=== PATIENT | male | born 1945 | race Caucasian/White ===

== ENCOUNTER → 2017-09-06 09:36 | Outpatient (CLI) | payer MEDICARE, OTHER, SELFPAY ==
[2017-09-06 10:25] LABS: Add Manual Diff / Slide Review NO; Basophils Percent Auto 0.5 % (0-2); Eosinophils Percent Auto 1.5 % (2-4); Hematocrit 39.8 % (41-53); Hemoglobin 14.3 g/dL (13.5-17.5); Lymphocytes Percent Auto 20.4 % (25-40); Mean Corpuscular HGB Conc 35.8 % (30-36); Mean Corpuscular Hemoglobin 32.9 PG (26-34); Mean Corpuscular Volume 91.8 fL (80-100); Monocytes Percent Auto 9.5 % (3-14); Neutrophils Absolute Auto 3100 /uL (3000-5900); Neutrophils Percent Auto 68.1 % (50-75); Platelet Count 152 X10^3/uL (150-400); Red Blood Cell Count 4.34 X10^6/uL (4.5-5.9); Red Cell Distribution Width 12.5 % (11.6-14.8); White Blood Cell Count 4.6 X10^3/uL (4.5-11.0)
[2017-09-06 10:36] LABS: Alanine Aminotransferase 45 IU/L (21-72); Albumin 4.2 g/dL (3.5-5.0); Albumin Globulin Ratio 1.4 (1.0-2.8); Alkaline Phosphatase 94 U/L (38-126); Aspartate Aminotransferase 35 IU/L (17-59); BUN Creatinine Ratio 22.9 (6-22); Bilirubin Total 0.8 mg/dL (0.2-1.3); Blood Urea Nitrogen 16 mg/dL (9-20); Calcium 9.1 mg/dL (8.4-10.2); Carbon Dioxide 26 mmol/L (22-32); Chloride 100 mmol/L (98-107); Estimated Glomerular Filt Rate > 60.0 mL/min (>60); Globulin 2.9 g/dL (1.7-4.1); Glucose 147 mg/dL (80-110); HEMOLYSIS < 15 (0-50); Potassium 4.6 mmol/L (3.4-5.1); Sodium 137 mmol/L (137-145); Total Protein 7.1 g/dL (6.3-8.2)
[2017-09-06 11:06] LABS: Carcinoembryonic Antigen 2.8 ng/mL (0.1-3.0)
== END ==
PROVIDERS: Nurse Practitioner Gerontology; PCP Family Medicine; Visit Provider Radiology Radiation Oncology
DX: C18.9 Malignant neoplasm of colon, unspecified (principal)
CPT/HCPCS: 36415; 80053; 82378; 85025

== ENCOUNTER → 2017-09-24 12:44 | Outpatient (CLI) | payer MEDICARE, OTHER, SELFPAY ==
[2017-09-24 14:36] LABS: Prostate Specific Antigen < 0.064 ng/mL (0.10-4.00)
== END ==
PROVIDERS: PCP Family Medicine; Visit Provider Radiology Radiation Oncology
DX: C61 Malignant neoplasm of prostate (principal)
CPT/HCPCS: 36415; 84153

== ENCOUNTER 2017-10-04 06:50 | Day surgery (SDC) | payer MEDICARE, OTHER, SELFPAY ==
[2017-10-04 07:43] VITALS: BMI 28.8
[2017-10-04 07:52] VITALS: BP 150/84; PULSE 63; RESP 15; TEMP 36.4; O2SAT 100
[2017-10-04] MEDS: SODIUM CHLORIDE 0.9% 1,000 ML 21 ML IV (07:54)
[2017-10-04] MEDS: MIDAZOLAM 5 MG/5 ML VIAL IV (08:53)
[2017-10-04] MEDS: fentaNYL 250 MCG/5 ML INJ IV (08:54)
--- NOTE | 2017-10-04 09:00 | PM.HP.1 ---
History of Present Illness Date Patient Seen: 10/04/17 Time Patient Seen: 08:15 Chief complaint: [id number] Narrative: Samm is a karina 71-year-old man who is well known to me from prior visits. In November of 2015 he underwent a sigmoid colectomy for stage I invasive colon cancer. 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 He has had radiation for both. He is here today for surveillance colonoscopy. He denies any new problems or symptoms related to the function of his GI tract. He still considers himself very healthy and is generally feeling well. Patient History Family & Social History Family History: Reviewed 10/04/17 by Angelica Mills MD Social History: household members spouse Meds Home Medications Medication Instructions Recorded Confirmed Type OMEGA-3 FATTY ACIDS (FISH OIL) 500 mg PO QDAY #0 01/10/16 10/04/17 History [RED YEAST RICE] 1 tab PO DAILY #0 01/10/16 10/04/17 History glucosamine sulfate [Genicin] 1,000 mg PO QDAY #0 01/10/16 10/04/17 History multivitamin [Multiple Vitamins] 2 tab PO QDAY #0 01/10/16 10/04/17 History lisinopril 40 mg PO QDAY #30 tab 09/05/16 10/04/17 Rx Allergies Allergy/AdvReac Type Severity Reaction Status Date / Time No Known Drug Allergies Allergy Verified 10/04/17 07:40 Review of Systems Review of Systems All systems reviewed & are unremarkable except as noted in HPI and below Exam Vital Signs (past 8 hours): - 10/04/17 07:52 Temperature 97.5 F L Pulse Rate 63 Respiratory Rate 15 Blood Pressure 150/84 H Pulse Oximetry 100 Oxygen Delivery Method Room Air Narrative Exam Narrative: Very pleasant well-nourished, well-developed gentleman in no distress. HEENT: Normocephalic and atraumatic, pupils equal round reactive to light accommodation with anicteric sclera Lungs: Clear to auscultation bilaterally Heart: Regular rate and rhythm Abdomen: Soft, nontender to palpation, active bowel sounds, no defects noted at the incision sites. Extremities: Warm and well perfused Assessment & Plan Plan: Assessment/Plan Narrative: We have discussed the risks and benefits of colonoscopy and the patient expressed desire to have the procedure.
[2017-10-04 09:03] VITALS: BP 102/56; PULSE 59; RESP 12; TEMP 36.4; O2SAT 95
--- NOTE | 2017-10-04 09:04 | PM.OP.1 ---
Operative Date/Time/Diagnoses Date of procedure: 10/04/17 Time of procedure: 09:04 Pre-op diagnosis: Personal history of stage I sigmoid colon cancer in November of 2015 Post-op diagnosis: same Procedure & Clinicians Procedure: Colonoscopy to the cecum Same procedure as scheduled: Yes Indications: Stage I colon cancer in November of 2015 Surgeon: Angelica Mills Click Yes if Unassisted: Yes Anesthesia Type: Sedation (Versed 5 mg; fentanyl 150 mcg) Operative Notes Findings: 1. Excellent prep 2. No polyps or mass lesions 3. No AV malformations 4. Anastomosis just superior to the rectal margin in good repair. No polyps or abnormalities present. 5. Grade 1 internal hemorrhoids 6. No evidence of recurrence within the colon Closure Type: not applicable Estimated Blood Loss (mL): 0 Procedure in detail: After obtaining informed consent, the patient was brought to the GI suite and placed in the left lateral decubitus position on the examination table. After placement of appropriate monitors, the patient was given incremental doses of Versed and Fentanyl until an appropriate level of sedation was achieved. A time out was held per SCOAP protocol. A digital rectal examination was performed and did not reveal any masses or obstructing lesions. The colonoscope was gently passed into the patient's anus and the entire colon navigated to the level of the cecum with minimal difficulty. Once in the cecum, the scope was withdrawn being sure to go before and beyond all mucosal folds and prominences and get an excellent examination. The findings are noted above. At the level of the rectal vault, the scope was retroflexed and the internal anal canal was examined. The scope was straightened and air aspirated from the colon. The instrument was removed from the patient's body and the procedure was concluded. The patient was allowed to awaken from sedation without difficulty and taken to the post-anesthesia care unit in good condition. Total sedation time was 19 min Total withdrawal time was 8 min 15 sec Complications: none Condition: stable Disposition: PACU Plan for aftercare: 1. Discharge to home 2. Plan for next colonoscopy in 1 year or as clinically indicated
[2017-10-04 09:08] VITALS: BP 105/68; PULSE 61; RESP 13; O2SAT 98
[2017-10-04 09:13] VITALS: BP 107/71; PULSE 62; RESP 15; TEMP 36.3; O2SAT 97
[2017-10-04 09:18] VITALS: BP 103/65; PULSE 60; RESP 13; TEMP 36.2; O2SAT 97
--- NOTE | 2017-10-04 09:26 | SUR.PHASEII ---
Pt arrived to phase II via stretcher. Pt sitting up and talking to RN. Pt drinking apple juice and tolerating well. Pt denies any nausea or discomfort. Bed in lowest position and call light given to pt. Pt awaiting arrival of at this time.
[2017-10-04 09:40] VITALS: BP 113/71; PULSE 58; RESP 15; TEMP 36.3; O2SAT 100
--- NOTE | 2017-10-04 10:00 | SUR.PHASEII ---
0948: Discharge teaching completed with Pt and ride home. All questions were answered, discharge instructions given and Pt ready to go home. Pt stable on feet and has met discharge criteria.
== END 2017-10-04 09:52 | disposition home or self-care (01) ==
PROVIDERS: PCP Family Medicine; Visit Provider Surgery
PROC: 0DJD8ZZ Inspection of Lower Intestinal Tract, Via Natural or Artificial Opening Endoscopic (ICD-10-PCS; CPT 45378; principal; 2017-10-04 07:45)
DX: Z85.038 Personal history of other malignant neoplasm of large intestine (principal); K64.0 First degree hemorrhoids; Z85.46 Personal history of malignant neoplasm of prostate
CPT/HCPCS: G0105; 99152; J2250; J3010

== ENCOUNTER → 2018-04-02 07:10 | Outpatient (CLI) | payer MEDICARE, OTHER, SELFPAY ==
[2018-04-02 09:39] LABS: Prostate Specific Antigen < 0.064 ng/mL (0.10-4.00)
== END ==
PROVIDERS: Family Provider Urology; PCP Family Medicine; Visit Provider Radiology Radiation Oncology
DX: Z85.46 Personal history of malignant neoplasm of prostate (principal)
CPT/HCPCS: 36415; 84153

== ENCOUNTER → 2018-07-10 07:07 | Outpatient (CLI) | payer MEDICARE, OTHER, SELFPAY ==
--- NOTE | 2018-07-10 | DI.US.S_ITS ---
PROCEDURE: US ABD AORTA ANEURYSM SCREEN INDICATIONS: HISTORY SMOKING TECHNIQUE: Real time scanning was performed of the aorta and iliac arteries, with image documentation. COMPARISON: None. FINDINGS: Aorta: Proximal aortic diameter measures 2.0 cm. Mid-aorta measures 1.6 cm. Distal aortic diameter is 1.5 cm. Iliac arteries: Right common iliac artery measures 1.4 cm. Left common iliac artery measures 1.2 cm. IMPRESSION: No aneurysm found. Dictated by: Stuart Ring M.D. on 07/10/2018 at 13:46 Approved by: Stuart Ring M.D. on 07/10/2018 at 13:47
== END ==
PROVIDERS: Family Provider Urology; PCP Family Medicine; Visit Provider Family Medicine
DX: Z13.6 Encounter for screening for cardiovascular disorders (principal); Z87.891 Personal history of nicotine dependence
CPT/HCPCS: 76706

== ENCOUNTER → 2018-10-04 10:18 | Outpatient (CLI) | payer MEDICARE, OTHER, SELFPAY | PROVIDERS: PCP Family Medicine; Visit Provider Radiology Radiation Oncology | DX: Z85.46 Personal history of malignant neoplasm of prostate (principal) | CPT/HCPCS: 36415; 84153 ==

== ENCOUNTER → 2019-01-07 07:56 | Outpatient (CLI) | payer MEDICARE, OTHER, SELFPAY ==
[2019-01-07 09:37] LABS: Prostate Specific Antigen 0.436 ng/mL (0.10-4.00)
== END ==
PROVIDERS: PCP Family Medicine; Visit Provider Radiology Radiation Oncology
DX: Z85.46 Personal history of malignant neoplasm of prostate (principal)
CPT/HCPCS: 36415; 84153

== ENCOUNTER → 2019-04-15 06:51 | Outpatient (CLI) | payer MEDICARE, OTHER, SELFPAY ==
[2019-04-15 08:41] LABS: Prostate Specific Antigen 1.41 ng/mL (0.10-4.00)
== END ==
PROVIDERS: PCP Family Medicine; Visit Provider Internal Medicine Hematology & Oncology
DX: Z85.46 Personal history of malignant neoplasm of prostate (principal)
CPT/HCPCS: 36415; 84153

== ENCOUNTER → 2019-07-10 12:48 | Outpatient (CLI) | payer MEDICARE, OTHER, SELFPAY ==
[2019-07-10 13:28] LABS: Add Manual Diff / Slide Review NO; Basophils Absolute Auto 0 /uL (0-100); Basophils Percent Auto 0.4 % (0-2); Eosinophils Absolute Auto 100 /uL (0-450); Eosinophils Percent Auto 1.7 % (2-4); Hematocrit 47.6 % (41-53); Hemoglobin 16.3 g/dL (13.5-17.5); Lymphocytes Absolute Auto 1100 /uL (1100-4500); Lymphocytes Percent Auto 20.5 % (25-40); Mean Corpuscular HGB Conc 34.3 % (30-36); Mean Corpuscular Hemoglobin 32.3 PG (26-34); Mean Corpuscular Volume 94.4 fL (80-100); Monocytes Absolute Auto 500 /uL (0-900); Monocytes Percent Auto 9.4 % (3-14); Neutrophils Absolute Auto 3600 /uL (1500-7000); Platelet Count 186 X10^3/uL (150-400); Red Blood Cell Count 5.04 X10^6/uL (4.5-5.9); Red Cell Distribution Width 13.5 % (11.6-14.8); White Blood Cell Count 5.3 X10^3/uL (4.5-11.0)
[2019-07-10 13:44] LABS: Alanine Aminotransferase 30 IU/L (<50); Albumin 4.3 g/dL (3.5-5.0); Albumin Globulin Ratio 1.4 (1.0-2.8); Alkaline Phosphatase 71 U/L (38-126); Aspartate Aminotransferase 38 IU/L (17-59); Bilirubin Total 1.2 mg/dL (0.2-1.3); Blood Urea Nitrogen 17 mg/dL (9-20); Calcium 9.3 mg/dL (8.4-10.2); Carbon Dioxide 28 mmol/L (22-32); Chloride 104 mmol/L (98-107); Estimated Glomerular Filt Rate > 60.0 mL/min (>60); Globulin 3.1 g/dL (1.7-4.1); Glucose 136 mg/dL (80-110); HEMOLYSIS < 15 (0-50); Lactate Dehydrogenase 439 U/L (313-618); Potassium 4.2 mmol/L (3.4-5.1); Sodium 138 mmol/L (137-145); Total Protein 7.4 g/dL (6.3-8.2)
[2019-07-10 14:14] LABS: Prostate Specific Antigen 3.09 ng/mL (0.10-4.00)
== END ==
PROVIDERS: PCP Family Medicine; Referring Provider Internal Medicine Hematology & Oncology; Visit Provider Internal Medicine Hematology & Oncology
DX: C61 Malignant neoplasm of prostate (principal)
CPT/HCPCS: 36415; 80053; 83615; 84153; 85025

== ENCOUNTER → 2019-08-11 10:02 | Outpatient (CLI) | payer MEDICARE, OTHER, SELFPAY ==
--- NOTE | 2019-08-11 | DI.NM.S_ITS ---
PROCEDURE: [place] BONE SCAN WHOLE BODY RADIOPHARMACEUTICAL: 20.6 mCi Tc-99m MDP IV. 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 Anterior and posterior views were acquired from vertex to feet. Additional left and right oblique views of the lower abdomen and pelvis were obtained. COMPARISON: [facility], CT, CT CHEST ABD PEL W CON, 08/11/2019, 11:14. [facility], [place], BONE SCAN WHOLE BODY, 08/30/2015, 11:24. 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 More inferiorly there is a small punctate focus of increased activity at the right seventh rib, seen on the frontal projection and the right 10th rib on the posterior projection. The anterior finding is new, the posterior finding is old. An additional new finding is asymmetric increased isotope deposition at the posterior elements of the spine or right vertebral body portion of the spine at T7. These new findings are suspicious for metastatic disease. Within the pelvis there is a focus of increased activity seen on the anterior projection imaging superimposed on the inferior obturator ring area. This was not previously present. More inferiorly degenerative etiology is the presumed cause for greater isotope deposition at the right than the left ankle and also of the lateral and medial aspect of the forefoot on the right. IMPRESSION: Several new foci of increased isotope deposition are present and previously present foci from 2016 remain. New foci are present at the anterior right seventh rib, the right T7 vertebra, and what appears to be the inferior obturator ring on the left anteriorly. Thoracic spine MRI without and with contrast may be warranted at this time given the new spine finding discussed above at T7. Review of the CT scanning performed today did not identify a discrete abnormality at these sites. Dictated by: Stuart Ring M.D. on 08/11/2019 at 14:51 Approved by: Stuart Ring M.D. on 08/11/2019 at 15:12
--- NOTE | 2019-08-11 | DI.CT.S_ITS ---
PROCEDURE: CT CHEST ABD PEL W CON INDICATIONS: PROSTATE CANCER TECHNIQUE: After the administration of oral and intravenous contrast, 5 mm thick sections acquired from the lung apices to the symphysis. 5 mm coronal and sagittal reformats were performed, with additional 7 mm coronal MIP reformats through the lungs. For radiation dose reduction, the following was used: automated exposure control, adjustment of mA and/or kV according to patient size. COMPARISON: MR pelvis 12/02/15, CT abdomen pelvis and bone scan in August of 2015.. FINDINGS: Image quality: Excellent. CHEST: Lungs and pleura: No acute airspace opacities. No pleural effusions or pneumothorax. Central and peripheral airways appear patent and normal in caliber. Mediastinum: Heart size is normal. No pericardial effusion. No mediastinal or hilar adenopathy by size criteria. Thoracic aorta and central pulmonary arteries are normal in size. Esophagus is normal in caliber. No hiatal hernia. Chest wall: No axillary or supraclavicular adenopathy by size criteria. Thyroid gland appears normal where well seen. ABDOMEN: Solid organs: Liver is normal in size and enhancement. Gallbladder contains multiple posterior layering small gallstones, partially calcified, without acute cholecystitis or biliary obstruction. Biliary system is non dilated. Pancreas enhances normally. Spleen is normal in size and enhancement. No adrenal nodules. Kidneys demonstrate normal size and enhancement, without hydronephrosis. Peritoneum and bowel: Bowel loops demonstrate normal wall thickness and caliber. No free fluid or air. Nodes and vessels: No retroperitoneal or mesenteric adenopathy by size criteria. Aorta and inferior vena cava are normal in size. Miscellaneous: No ventral hernias. PELVIS: Genitourinary: Bladder wall thickness is normal. Miscellaneous: No inguinal hernias or adenopathy. There is an enteric staple line at the posterior sigmoid colon/rectum junction area without mass or adjacent adenopathy. Several surgical clips are present near the prostate gland margins, without identifiable prostate mass or adjacent adenopathy. Bones: No suspicious bony lesions. No vertebral body compression fractures. IMPRESSION: Postsurgical changes as discussed above at the rectosigmoid junction and also adjacent to the prostate gland were several surgical clips can be visualized. No evidence for neoplasm at the prostate itself, adjacent adenopathy, or distant metastatic disease. Dictated by: Stuart Ring M.D. on 08/11/2019 at 12:15 Approved by: Stuart Ring M.D. on 08/11/2019 at 12:18
[2019-08-11 10:24] LABS: Add Manual Diff / Slide Review NO; Basophils Absolute Auto 0 /uL (0-100); Basophils Percent Auto 0.5 % (0-2); Eosinophils Absolute Auto 100 /uL (0-450); Eosinophils Percent Auto 2.1 % (2-4); Hematocrit 46.6 % (41-53); Hemoglobin 16.6 g/dL (13.5-17.5); Lymphocytes Absolute Auto 1000 /uL (1100-4500); Lymphocytes Percent Auto 19.1 % (25-40); Mean Corpuscular HGB Conc 35.6 % (30-36); Mean Corpuscular Hemoglobin 33.3 PG (26-34); Mean Corpuscular Volume 93.5 fL (80-100); Monocytes Absolute Auto 500 /uL (0-900); Monocytes Percent Auto 9.4 % (3-14); Neutrophils Absolute Auto 3700 /uL (1500-7000); Neutrophils Percent Auto 68.9 % (50-75); Platelet Count 156 X10^3/uL (150-400); Red Blood Cell Count 4.98 X10^6/uL (4.5-5.9); Red Cell Distribution Width 12.9 % (11.6-14.8); White Blood Cell Count 5.3 X10^3/uL (4.5-11.0)
[2019-08-11 10:43] LABS: Alanine Aminotransferase 28 IU/L (<50); Albumin 4.5 g/dL (3.5-5.0); Albumin Globulin Ratio 1.5 (1.0-2.8); Alkaline Phosphatase 68 U/L (38-126); Aspartate Aminotransferase 36 IU/L (17-59); BUN Creatinine Ratio 22.4 (6-22); Bilirubin Total 1.5 mg/dL (0.2-1.3); Blood Urea Nitrogen 13 mg/dL (9-20); Calcium 9.7 mg/dL (8.4-10.2); Carbon Dioxide 27 mmol/L (22-32); Chloride 102 mmol/L (98-107); Estimated Glomerular Filt Rate > 60.0 mL/min (>60); Glucose 130 mg/dL (80-110); HEMOLYSIS < 15 (0-50); Lactate Dehydrogenase 412 U/L (313-618); Potassium 4.9 mmol/L (3.4-5.1); Sodium 138 mmol/L (137-145); Total Protein 7.5 g/dL (6.3-8.2)
[2019-08-11 11:13] LABS: Prostate Specific Antigen 3.99 ng/mL (0.10-4.00)
== END ==
PROVIDERS: PCP Family Medicine; Referring Provider Internal Medicine Hematology & Oncology; Visit Provider Internal Medicine Hematology & Oncology
DX: C61 Malignant neoplasm of prostate (principal); D49.59 Neoplasm of unspecified behavior of other genitourinary organ; K80.20 Calculus of gallbladder without cholecystitis without obstruction; M19.011 Primary osteoarthritis, right shoulder; M19.012 Primary osteoarthritis, left shoulder
CPT/HCPCS: 36415; 71260; 74177; 78306; 80053; 83615; 84153; 85025; A9503; Q9967

== ENCOUNTER → 2019-09-05 09:40 | Outpatient (CLI) | payer MEDICARE, OTHER, SELFPAY ==
--- NOTE | 2019-09-05 | DI.MRI.S_ITS ---
PROCEDURE: MR THORACIC SPINE WO/W CON INDICATIONS: PROSTATE CANCER TECHNIQUE: Noncontrast sagittal T1 spin echo and T2 fast spin echo, sagittal STIR, axial T1 and T2 fast spin echo through the thoracic spine. After the administration of contrast, axial and sagittal T1 spin echo with fat saturation through the thoracic spine. COMPARISON: [facility], CT, CT CHEST ABD PEL W CON, 08/11/2019, 11:14. [facility], [place], [place] BONE SCAN WHOLE BODY, 08/11/2019, 13:57. FINDINGS: Image quality: Diagnostic, with note made of motion artifact. Alignment and curvature: There is minimal dextroconvex scoliotic curvature. Accentuated thoracic kyphosis is seen. No focal AP alignment abnormality is seen. Marrow: Marrow is of normal overall signal. No acute vertebral body compression fractures. There is abnormal signal seen within the posterior elements of the right T7 vertebral body, with increased enhancement, as on series 10 image 25 and on series 9 image 3. No definite signal abnormalities can be seen involving the vertebral bodies themselves. Spinal cord: Visualized spinal cord is of normal signal and size, without abnormal enhancement. Paraspinous soft tissues: No paravertebral masses or abnormal enhancement. Miscellaneous: Degenerative changes are seen, with several levels of bridging anterior osteophytes. At T10-T11, there is moderate disc bulge seen. Mild to moderate central canal narrowing is seen, as on series 7 image 40. Mild bilateral neural foraminal narrowing is seen at this level. At T11-T12, there is mild disc bulge seen with minimal central canal narrowing and mild bilateral neural foraminal narrowing. At T12-L1, moderate disc bulge is seen, which is eccentric to the right. There is moderate bilateral neural foraminal narrowing and mild to moderate central canal narrowing seen. IMPRESSION: There is abnormal signal seen within the right T7 posterior elements, which corresponds well to the abnormal bone scan appearance at this site. Lower thoracic spine degenerative changes are seen. Dictated by: Mark Arnold M.D. on 09/05/2019 at 9:45 Approved by: Mark Arnold M.D. on 09/05/2019 at 9:51
== END ==
PROVIDERS: PCP Family Medicine; Referring Provider Radiology Radiation Oncology; Visit Provider Radiology Radiation Oncology
DX: C61 Malignant neoplasm of prostate (principal); M47.814 Spondylosis without myelopathy or radiculopathy, thoracic region
CPT/HCPCS: 72157; A9579

== ENCOUNTER → 2019-09-17 12:59 | Outpatient (CLI) | payer MEDICARE, OTHER, SELFPAY ==
[2019-09-17 14:54] LABS: Add Manual Diff / Slide Review NO; Basophils Absolute Auto 0 /uL (0-100); Basophils Percent Auto 0.3 % (0-2); Eosinophils Absolute Auto 100 /uL (0-450); Eosinophils Percent Auto 0.9 % (2-4); Hematocrit 44.8 % (41-53); Hemoglobin 16.2 g/dL (13.5-17.5); Lymphocytes Absolute Auto 1000 /uL (1100-4500); Lymphocytes Percent Auto 17.6 % (25-40); Mean Corpuscular HGB Conc 36.2 % (30-36); Mean Corpuscular Volume 93.9 fL (80-100); Monocytes Absolute Auto 500 /uL (0-900); Monocytes Percent Auto 9.5 % (3-14); Neutrophils Absolute Auto 4100 /uL (1500-7000); Neutrophils Percent Auto 71.7 % (50-75); Platelet Count 172 X10^3/uL (150-400); Red Blood Cell Count 4.77 X10^6/uL (4.5-5.9); Red Cell Distribution Width 13.3 % (11.6-14.8); White Blood Cell Count 5.7 X10^3/uL (4.5-11.0)
[2019-09-17 15:41] LABS: Alanine Aminotransferase 27 IU/L (<50); Albumin 4.3 g/dL (3.5-5.0); Albumin Globulin Ratio 1.8 (1.0-2.8); Alkaline Phosphatase 78 U/L (38-126); Aspartate Aminotransferase 42 IU/L (17-59); BUN Creatinine Ratio 15.5 (6-22); Bilirubin Total 1.2 mg/dL (0.2-1.3); Blood Urea Nitrogen 9 mg/dL (9-20); Calcium 9.4 mg/dL (8.4-10.2); Carbon Dioxide 27 mmol/L (22-32); Chloride 96 mmol/L (98-107); Estimated Glomerular Filt Rate > 60.0 mL/min (>60); Globulin 2.4 g/dL (1.7-4.1); Glucose 120 mg/dL (80-110); HEMOLYSIS < 15 (0-50); Potassium 4.9 mmol/L (3.4-5.1); Sodium 131 mmol/L (137-145); Total Protein 6.7 g/dL (6.3-8.2)
[2019-09-17 16:09] LABS: Prostate Specific Antigen 3.32 ng/mL (0.10-4.00)
== END ==
PROVIDERS: PCP Family Medicine; Referring Provider Internal Medicine Hematology & Oncology; Visit Provider Internal Medicine Hematology & Oncology
DX: C61 Malignant neoplasm of prostate (principal); C79.51 Secondary malignant neoplasm of bone
CPT/HCPCS: 36415; 80053; 84153; 85025

== ENCOUNTER → 2019-10-14 08:56 | Outpatient (CLI) | payer MEDICARE, OTHER, SELFPAY ==
[2019-10-14 09:57] LABS: Add Manual Diff / Slide Review NO; Basophils Absolute Auto 0 /uL (0-100); Basophils Percent Auto 0.5 % (0-2); Eosinophils Absolute Auto 100 /uL (0-450); Eosinophils Percent Auto 1.9 % (2-4); Hematocrit 45.3 % (41-53); Hemoglobin 15.9 g/dL (13.5-17.5); Lymphocytes Absolute Auto 1000 /uL (1100-4500); Lymphocytes Percent Auto 25.5 % (25-40); Mean Corpuscular Hemoglobin 32.7 PG (26-34); Mean Corpuscular Volume 93.5 fL (80-100); Monocytes Absolute Auto 500 /uL (0-900); Monocytes Percent Auto 11.3 % (3-14); Neutrophils Absolute Auto 2500 /uL (1500-7000); Neutrophils Percent Auto 60.8 % (50-75); Platelet Count 145 X10^3/uL (150-400); Red Blood Cell Count 4.85 X10^6/uL (4.5-5.9)
[2019-10-14 10:44] LABS: Alanine Aminotransferase 30 IU/L (<50); Albumin 4.1 g/dL (3.5-5.0); Albumin Globulin Ratio 1.6 (1.0-2.8); Alkaline Phosphatase 71 U/L (38-126); Aspartate Aminotransferase 34 IU/L (17-59); BUN Creatinine Ratio 26.3 (6-22); Bilirubin Total 1.4 mg/dL (0.2-1.3); Blood Urea Nitrogen 15 mg/dL (9-20); Calcium 9.7 mg/dL (8.4-10.2); Carbon Dioxide 29 mmol/L (22-32); Chloride 100 mmol/L (98-107); Estimated Glomerular Filt Rate > 60.0 mL/min (>60); Globulin 2.6 g/dL (1.7-4.1); Glucose 125 mg/dL (80-110); HEMOLYSIS < 15 (0-50); Potassium 5.2 mmol/L (3.4-5.1); Sodium 135 mmol/L (137-145); Total Protein 6.7 g/dL (6.3-8.2)
[2019-10-14 11:12] LABS: Prostate Specific Antigen 2.87 ng/mL (0.10-4.00)
== END ==
PROVIDERS: PCP Family Medicine; Referring Provider Internal Medicine Hematology & Oncology; Visit Provider Internal Medicine Hematology & Oncology
DX: C61 Malignant neoplasm of prostate (principal); C79.51 Secondary malignant neoplasm of bone
CPT/HCPCS: 36415; 80053; 84153; 85025

== ENCOUNTER → 2019-12-19 08:34 | Outpatient (CLI) | payer MEDICARE, OTHER, SELFPAY ==
[2019-12-19 09:39] LABS: Add Manual Diff / Slide Review NO; Basophils Absolute Auto 0 /uL (0-100); Basophils Percent Auto 0.6 % (0-2); Eosinophils Absolute Auto 200 /uL (0-450); Eosinophils Percent Auto 3.9 % (2-4); Hematocrit 41.6 % (41-53); Hemoglobin 14.8 g/dL (13.5-17.5); Lymphocytes Absolute Auto 1000 /uL (1100-4500); Lymphocytes Percent Auto 19.5 % (25-40); Mean Corpuscular HGB Conc 35.5 % (30-36); Mean Corpuscular Hemoglobin 33.4 PG (26-34); Monocytes Absolute Auto 500 /uL (0-900); Monocytes Percent Auto 10.8 % (3-14); Neutrophils Absolute Auto 3200 /uL (1500-7000); Neutrophils Percent Auto 65.2 % (50-75); Platelet Count 144 X10^3/uL (150-400); Red Blood Cell Count 4.43 X10^6/uL (4.5-5.9); Red Cell Distribution Width 13.5 % (11.6-14.8); White Blood Cell Count 4.9 X10^3/uL (4.5-11.0)
[2019-12-19 09:59] LABS: Alanine Aminotransferase 39 IU/L (<50); Albumin Globulin Ratio 1.5 (1.0-2.8); Alkaline Phosphatase 71 U/L (38-126); Aspartate Aminotransferase 46 IU/L (17-59); BUN Creatinine Ratio 21.8 (6-22); Bilirubin Total 1.5 mg/dL (0.2-1.3); Blood Urea Nitrogen 12 mg/dL (9-20); Calcium 9.1 mg/dL (8.4-10.2); Carbon Dioxide 29 mmol/L (22-32); Chloride 101 mmol/L (98-107); Estimated Glomerular Filt Rate > 60.0 mL/min (>60); Globulin 2.7 g/dL (1.7-4.1); Glucose 113 mg/dL (80-110); HEMOLYSIS < 15 (0-50); Potassium 4.7 mmol/L (3.4-5.1); Sodium 136 mmol/L (137-145); Total Protein 6.7 g/dL (6.3-8.2)
== END ==
PROVIDERS: PCP Family Medicine; Referring Provider Internal Medicine Hematology & Oncology; Visit Provider Internal Medicine Hematology & Oncology
DX: C61 Malignant neoplasm of prostate (principal); C79.51 Secondary malignant neoplasm of bone
CPT/HCPCS: 36415; 80053; 84153; 85025

== ENCOUNTER → 2020-02-24 14:51 | Outpatient (CLI) | payer MEDICARE, OTHER, SELFPAY ==
[2020-02-24 15:45] LABS: Add Manual Diff / Slide Review NO; Basophils Absolute Auto 0 /uL (0-100); Basophils Percent Auto 0.6 % (0-2); Eosinophils Absolute Auto 100 /uL (0-450); Eosinophils Percent Auto 1.3 % (2-4); Hematocrit 42.2 % (41-53); Hemoglobin 14.8 g/dL (13.5-17.5); Lymphocytes Absolute Auto 1500 /uL (1100-4500); Lymphocytes Percent Auto 24.7 % (25-40); Mean Corpuscular HGB Conc 35.1 % (30-36); Mean Corpuscular Hemoglobin 33.1 PG (26-34); Mean Corpuscular Volume 94.2 fL (80-100); Monocytes Absolute Auto 500 /uL (0-900); Monocytes Percent Auto 8.4 % (3-14); Neutrophils Absolute Auto 4000 /uL (1500-7000); Platelet Count 165 X10^3/uL (150-400); Red Blood Cell Count 4.48 X10^6/uL (4.5-5.9); Red Cell Distribution Width 12.8 % (11.6-14.8); White Blood Cell Count 6.1 X10^3/uL (4.5-11.0)
[2020-02-24 16:34] LABS: Alanine Aminotransferase 36 IU/L (<50); Albumin 4.4 g/dL (3.5-5.0); Albumin Globulin Ratio 1.7 (1.0-2.8); Alkaline Phosphatase 88 U/L (38-126); Aspartate Aminotransferase 45 IU/L (17-59); Bilirubin Total 1.2 mg/dL (0.2-1.3); Blood Urea Nitrogen 12 mg/dL (9-20); Calcium 9.5 mg/dL (8.4-10.2); Carbon Dioxide 26 mmol/L (22-32); Chloride 103 mmol/L (98-107); Estimated Glomerular Filt Rate > 60.0 mL/min (>60); Globulin 2.6 g/dL (1.7-4.1); Glucose 100 mg/dL (80-110); HEMOLYSIS < 15 (0-50); Potassium 4.2 mmol/L (3.4-5.1); Sodium 136 mmol/L (137-145)
[2020-02-24 17:04] LABS: Prostate Specific Antigen < 0.064 ng/mL (0.10-4.00)
== END ==
PROVIDERS: PCP Family Medicine; Referring Provider Internal Medicine Hematology & Oncology; Visit Provider Internal Medicine Hematology & Oncology
DX: C61 Malignant neoplasm of prostate (principal); C79.51 Secondary malignant neoplasm of bone
CPT/HCPCS: 36415; 80053; 84153; 85025

== ENCOUNTER → 2020-04-24 12:08 | Outpatient (CLI) | payer MEDICARE, OTHER, SELFPAY ==
[2020-04-24 13:00] LABS: Add Manual Diff / Slide Review NO; Basophils Absolute Auto 0 /uL (0-100); Basophils Percent Auto 0.4 % (0-2); Eosinophils Absolute Auto 100 /uL (0-450); Eosinophils Percent Auto 1.5 % (2-4); Hematocrit 43.2 % (41-53); Hemoglobin 14.8 g/dL (13.5-17.5); Lymphocytes Absolute Auto 1000 /uL (1100-4500); Lymphocytes Percent Auto 19.7 % (25-40); Mean Corpuscular HGB Conc 34.2 % (30-36); Mean Corpuscular Hemoglobin 32.2 PG (26-34); Monocytes Absolute Auto 400 /uL (0-900); Neutrophils Absolute Auto 3400 /uL (1500-7000); Neutrophils Percent Auto 69.4 % (50-75); Platelet Count 168 X10^3/uL (150-400); Red Cell Distribution Width 13.2 % (11.6-14.8); White Blood Cell Count 4.9 X10^3/uL (4.5-11.0)
[2020-04-24 13:11] LABS: Alanine Aminotransferase 28 IU/L (<50); Albumin 4.4 g/dL (3.5-5.0); Albumin Globulin Ratio 1.5 (1.0-2.8); Alkaline Phosphatase 74 U/L (38-126); Aspartate Aminotransferase 35 IU/L (17-59); BUN Creatinine Ratio 17.1 (6-22); Bilirubin Total 1.2 mg/dL (0.2-1.3); Blood Urea Nitrogen 12 mg/dL (9-20); Calcium 9.3 mg/dL (8.4-10.2); Carbon Dioxide 30 mmol/L (22-32); Chloride 99 mmol/L (98-107); Estimated Glomerular Filt Rate > 60.0 mL/min (>60); Globulin 2.9 g/dL (1.7-4.1); Glucose 157 mg/dL (80-110); HEMOLYSIS < 15 (0-50); Potassium 3.9 mmol/L (3.4-5.1); Sodium 133 mmol/L (137-145); Total Protein 7.3 g/dL (6.3-8.2)
[2020-04-24 13:44] LABS: Prostate Specific Antigen < 0.064 ng/mL (0.10-4.00)
== END ==
PROVIDERS: PCP Family Medicine; Referring Provider Internal Medicine Hematology & Oncology; Visit Provider Internal Medicine Hematology & Oncology
DX: C79.51 Secondary malignant neoplasm of bone (principal); C61 Malignant neoplasm of prostate
CPT/HCPCS: 36415; 80053; 84153; 85025

== ENCOUNTER → 2020-07-13 07:03 | Outpatient (CLI) | payer MEDICARE, OTHER, SELFPAY ==
[2020-07-13 08:09] LABS: Add Manual Diff / Slide Review NO; Basophils Absolute Auto 0 /uL (0-100); Basophils Percent Auto 0.6 % (0-2); Eosinophils Absolute Auto 100 /uL (0-450); Eosinophils Percent Auto 2.3 % (2-4); Hematocrit 41.6 % (41-53); Hemoglobin 14.4 g/dL (13.5-17.5); Lymphocytes Absolute Auto 1300 /uL (1100-4500); Lymphocytes Percent Auto 31.8 % (25-40); Mean Corpuscular HGB Conc 34.7 % (30-36); Mean Corpuscular Hemoglobin 32.9 PG (26-34); Mean Corpuscular Volume 94.8 fL (80-100); Monocytes Absolute Auto 400 /uL (0-900); Monocytes Percent Auto 10.4 % (3-14); Neutrophils Absolute Auto 2200 /uL (1500-7000); Neutrophils Percent Auto 54.9 % (50-75); Platelet Count 151 X10^3/uL (150-400); Red Blood Cell Count 4.39 X10^6/uL (4.5-5.9); Red Cell Distribution Width 12.8 % (11.6-14.8); White Blood Cell Count 4.1 X10^3/uL (4.5-11.0)
[2020-07-13 08:25] LABS: Alanine Aminotransferase 40 IU/L (<50); Albumin Globulin Ratio 1.5 (1.0-2.8); Alkaline Phosphatase 68 U/L (38-126); Aspartate Aminotransferase 42 IU/L (17-59); BUN Creatinine Ratio 21.4 (6-22); Bilirubin Total 1.1 mg/dL (0.2-1.3); Blood Urea Nitrogen 12 mg/dL (9-20); Calcium 9.4 mg/dL (8.4-10.2); Carbon Dioxide 28 mmol/L (22-32); Chloride 102 mmol/L (98-107); Estimated Glomerular Filt Rate > 60.0 mL/min (>60); Globulin 2.6 g/dL (1.7-4.1); Glucose 100 mg/dL (80-110); HEMOLYSIS < 15 (0-50); Potassium 4.4 mmol/L (3.4-5.1); Sodium 136 mmol/L (137-145); Total Protein 6.6 g/dL (6.3-8.2)
[2020-07-13 08:57] LABS: Prostate Specific Antigen < 0.064 ng/mL (0.10-4.00)
== END ==
PROVIDERS: PCP Family Medicine; Referring Provider Internal Medicine Hematology & Oncology; Visit Provider Internal Medicine Hematology & Oncology
DX: C79.51 Secondary malignant neoplasm of bone (principal); C61 Malignant neoplasm of prostate
CPT/HCPCS: 36415; 80053; 84153; 85025

== ENCOUNTER 2021-01-26 22:13 | Emergency (ER) | payer MEDICARE, OTHER, SELFPAY ==
[2021-01-26] VITALS (8 sets, daily range): BP systolic 113–206; BP diastolic 61–106; PULSE 70–79; RESP 12–20; TEMP 36.6; O2SAT 92–98; BMI 28.0
--- NOTE | 2021-01-26 22:22 | DI.RAD.S_ITS ---
PROCEDURE: XR CHEST 1V INDICATIONS: chest pain TECHNIQUE: One view of the chest was acquired. COMPARISON: [facility], CT, CT CHEST ABD PEL W CON, 08/11/2019, 11:14. [facility], [place], CHEST 2 VIEW, 09/07/2015, 9:44. FINDINGS: Surgical changes and devices: None. Lungs and pleura: Lungs are clear. No pleural effusions or pneumothorax. Mediastinum: Mediastinal contours appear normal. Heart size is enlarged. Bones and chest wall: No suspicious bony lesions. Overlying soft tissues appear unremarkable. IMPRESSION: No acute pulmonary process. Dictated by: Shelly Gramajo M.D. on 01/26/2021 at 22:37 Approved by: Shelly Gramajo M.D. on 01/26/2021 at 22:37
[2021-01-26 22:34] LABS: Add Manual Diff / Slide Review NO; Basophils Absolute Auto 0 /uL (0-100); Basophils Percent Auto 0.5 % (0-2); Eosinophils Absolute Auto 100 /uL (0-450); Eosinophils Percent Auto 1.1 % (2-4); Hematocrit 45.5 % (41-53); Hemoglobin 16.2 g/dL (13.5-17.5); Lymphocytes Absolute Auto 2000 /uL (1100-4500); Lymphocytes Percent Auto 27.2 % (25-40); Mean Corpuscular HGB Conc 35.6 % (30-36); Mean Corpuscular Hemoglobin 33.1 PG (26-34); Mean Corpuscular Volume 92.9 fL (80-100); Monocytes Absolute Auto 800 /uL (0-900); Monocytes Percent Auto 10.2 % (3-14); Neutrophils Absolute Auto 4600 /uL (1500-7000); Platelet Count 226 X10^3/uL (150-400); Red Blood Cell Count 4.89 X10^6/uL (4.5-5.9); Red Cell Distribution Width 12.6 % (11.6-14.8); White Blood Cell Count 7.5 X10^3/uL (4.5-11.0)
[2021-01-26 22:51] LABS: Alanine Aminotransferase 30 IU/L (<50); Albumin 4.9 g/dL (3.5-5.0); Albumin Globulin Ratio 1.5 (1.0-2.8); Alkaline Phosphatase 90 U/L (38-126); Aspartate Aminotransferase 49 IU/L (17-59); BUN Creatinine Ratio 24.5 (6-22); Blood Urea Nitrogen 13 mg/dL (9-20); Calcium 9.6 mg/dL (8.4-10.2); Carbon Dioxide 27 mmol/L (22-32); Chloride 95 mmol/L (98-107); Creatine Kinase 153 U/L (55-170); Estimated Glomerular Filt Rate > 60.0 mL/min (>60); Globulin 3.3 g/dL (1.7-4.1); Glucose 134 mg/dL (80-110); Lipase 154 U/L (23-300); Potassium 3.6 mmol/L (3.4-5.1); Sodium 132 mmol/L (137-145); Total Protein 8.2 g/dL (6.3-8.2)
[2021-01-26 22:52] LABS: HEMOLYSIS 57 (0-50)
[2021-01-26 22:53] LABS: COVID19 -Nasal RAPID Negative (Negative)
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
[2021-01-26] MEDS: ASPIRIN 81 MG CHEW TAB 324 MG PO (22:58)
[2021-01-26] MEDS: NITROGLYCERIN 0.4 MG SL TAB SL ×3 (23:02→23:35)
[2021-01-26 23:06] LABS: Troponin I 0.875 ng/mL (0.01-0.034)
[2021-01-26 23:19] LABS: D Dimer 202 ng/mL (<230)
[2021-01-26 23:27] LABS: PTT Partial Thromboplastin Tim 38 SECONDS (26.4-36.2)
[2021-01-26 23:33] LABS: NT-proBNP (BNP-Adult 18+) 940 pg/mL (<450)
[2021-01-26] MEDS: HEPARIN DRIP 25,000 UNIT/500 ML IV.SOLN 20 UNIT IV (23:35)
[2021-01-26] MEDS: HEPARIN 5,000 UNIT/ML VIAL 5000 UNIT IV (23:35)
--- NOTE | 2021-01-26 23:49 | PC.NURSE ---
Pt reports that his CP is now a 0/10. Dr. Montana said to hold nitro drip as long as pt has no CP
[2021-01-27] VITALS (55 sets, daily range): BP systolic 119–166; BP diastolic 70–99; PULSE 59–82; RESP 9–32; O2SAT 94–98
[2021-01-27 06:11] LABS: PTT Partial Thromboplastin Tim 108 SECONDS (26.4-36.2)
[2021-01-27 12:49] LABS: PTT Partial Thromboplastin Tim 51 SECONDS (26.4-36.2)
== END 2021-01-27 13:18 | disposition short-term general hospital (02) ==
PROVIDERS: Emergency Medicine; Emergency Provider Emergency Medicine; PCP Family Medicine
DX: I21.4 Non-ST elevation (NSTEMI) myocardial infarction (principal); R79.89 Other specified abnormal findings of blood chemistry; R07.9 Chest pain, unspecified; Z20.822 Contact with and (suspected) exposure to COVID-19
CPT/HCPCS: 36415; 71045; 80053; 82550; 82553; 83690; 83880; 84484; 85025; 85379; 85730; 87635; 93005; 93010; 96365; 96366; 96375; 99285; 99291; C9803; J1644

== ENCOUNTER → 2021-02-13 13:54 | Outpatient (CLI) | payer MEDICARE, OTHER, SELFPAY ==
--- NOTE | 2021-02-13 13:56 | DI.RAD.S_ITS ---
PROCEDURE: XR LUMBAR SPINE 6V W BENDING INDICATIONS: low back pain, L lateral thigh radiculopathy TECHNIQUE: 5 views of the lumbar spine acquired, including flexion and extension views. COMPARISON: None. FINDINGS: Bones: 5 nonrib-bearing vertebrae are present. Moderate degenerative disc height loss L4-5 and severe degenerative disc height loss L5-S1. Normal AP alignment, maintained in both flexion and extension. No vertebral body compression fractures. Degenerative anterior osteophytes at L3 and L4. No pars defects. There is mild facet degeneration bilaterally L4-5 and L5-S1. No suspicious bony lesions. Soft tissues: Overlying bowel gas pattern is normal. No suspicious soft tissue calcifications. Heavy abdominal aortic calcification. Flexion/extension: There is normal range of motion, with preserved normal alignment. IMPRESSION: 1. Degenerative disc height loss L4-5 and L5-S1. 2. Mild degenerative changes elsewhere. 3. No acute fractures. Dictated by: Carolee Ricks M.D. on 02/13/2021 at 14:56 Approved by: Carolee Ricks M.D. on 02/13/2021 at 14:58
== END ==
PROVIDERS: PCP Family Medicine; Referring Provider Physician Assistant; Visit Provider Physician Assistant
DX: M47.817 Spondylosis without myelopathy or radiculopathy, lumbosacral region (principal); M47.816 Spondylosis without myelopathy or radiculopathy, lumbar region; M54.50 Low back pain, unspecified; M79.605 Pain in left leg
CPT/HCPCS: 72114

== ENCOUNTER → 2021-02-25 19:13 | Outpatient (CLI) | payer MEDICARE, OTHER, SELFPAY ==
--- NOTE | 2021-02-25 19:15 | DI.MRI.S_ITS ---
PROCEDURE: MR LUMBAR SPINE WO CON INDICATIONS: LUMBAGO WITH SCIATICA, LEFT SIDE TECHNIQUE: Noncontrast sagittal T1 spin echo and T2 fast echo, sagittal STIR, axial T1 and T2 fast spin echo through the lumbar spine. In cases with scoliosis, additional coronal T2 fast spin echo may be performed. COMPARISON: , CR, XR LUMBAR SPINE 6V W BENDING, 02/13/2021, 13:49. FINDINGS: Image quality: Excellent. Alignment and Curvature: 5 lumbar type vertebral bodies are present by plain film. There is mild grade 1 retrolisthesis of L1 on L2 and L3 on L4. Bone Marrow: Marrow is of normal overall signal. No acute vertebral body compression fractures. Mild reactive signal throughout the endplates of the lumbar and lower thoracic spine, worst at L1-L2 and L5-S1. Posterior L5 hemangioma is present. Spinal Cord: Conus medullaris terminates at the L1-L2 disc space level. Visualized cord demonstrates normal signal and size. Paraspinous Soft Tissues: No paravertebral masses. T12-L1: Mild disc height loss and desiccation. Mild diffuse disc bulge. Mild facet and ligamentum flavum hypertrophy. Mild epidural lipomatosis. Mild canal stenosis. Mild bilateral foraminal stenosis. L1-L2: Mild disc height loss. Moderate disc desiccation. Mild diffuse disc bulge. Mild facet and ligamentum flavum hypertrophy. Mild epidural lipomatosis. Moderate to severe canal stenosis. Moderate bilateral foraminal stenosis. L2-L3: Mild disc height loss. Moderate disc desiccation. Moderate diffuse disc bulge with superimposed broad-based left far lateral disc protrusion. Mild facet and ligamentum flavum hypertrophy. Mild epidural lipomatosis. Severe canal stenosis. Severe left and moderate right foraminal stenosis. Left L2 nerve root compression. L3-L4: Moderate disc desiccation. Mild disc height loss. Mild diffuse disc bulge. Mild facet and ligamentum flavum hypertrophy. Mild epidural lipomatosis. Moderate canal stenosis. Mild left and moderate right foraminal stenosis. L4-L5: Moderate disc height loss and desiccation. Moderate diffuse disc bulge with superimposed broad-based central protrusion. Moderate facet and ligamentum flavum hypertrophy. Severe canal stenosis. Moderate to severe right and moderate left foraminal stenosis. Right L4 nerve root compression. L5-S1: Moderate disc height loss and desiccation. Moderate diffuse disc bulge with superimposed right paracentral protrusion. Mild facet and ligamentum flavum hypertrophy. Mild canal stenosis. Severe right and moderate left foraminal stenosis. Right L5 nerve root compression. Posterior deviation of the right S1 nerve root within the lateral recess. IMPRESSION: 1. Multilevel degenerative disc and facet disease, as well as ligamentum flavum hypertrophy and epidural lipomatosis. 2. Multilevel canal stenoses, worst at L1-L2, L2-L3, and L4-L5 as described above. 3. Multilevel foraminal stenoses, worst at L2-L3, L4-L5 and L5-S1 where there is associated intraforaminal nerve root compression. 4. Right lateral recess stenosis at L5-S1 associated with posterior deviation of the right S1 nerve root. 5. Recommend correlation with clinical symptoms to ascertain relevance of these findings. Dictated by: Ashlee Mcdowell M.D. on 02/28/2021 at 8:55 Approved by: Ashlee Mcdowell M.D. on 02/28/2021 at 9:00
== END ==
PROVIDERS: PCP Family Medicine; Referring Provider Family Medicine; Visit Provider Family Medicine
DX: M51.16 Intervertebral disc disorders with radiculopathy, lumbar region (principal); M51.17 Intervertebral disc disorders with radiculopathy, lumbosacral region; M48.061 Spinal stenosis, lumbar region without neurogenic claudication; M48.07 Spinal stenosis, lumbosacral region
CPT/HCPCS: 72148

== ENCOUNTER → 2021-05-05 08:46 | Outpatient (CLI) | payer MEDICARE, OTHER, SELFPAY ==
[2021-05-05 10:53] LABS: BUN Creatinine Ratio 23.3 (6-22); Blood Urea Nitrogen 14 mg/dL (9-20); Calcium 9.7 mg/dL (8.4-10.2); Carbon Dioxide 27 mmol/L (22-32); Chloride 102 mmol/L (98-107); Cholesterol 201 mg/dL (140-199); Estimated Glomerular Filt Rate > 60.0 mL/min (>60); Glucose 109 mg/dL (80-110); HDL Cholesterol 63 mg/dL (40-60); HEMOLYSIS < 15 (0-50); LDL Cholesterol Calculated 124 mg/dL (<100); Potassium 5.3 mmol/L (3.4-5.1); Sodium 136 mmol/L (137-145); Triglycerides 68 mg/dL (35-150); VLDL Cholesterol Calculated 14 mg/dL (2-30)
== END ==
PROVIDERS: PCP Family Medicine; Referring Provider Internal Medicine Cardiovascular Disease; Visit Provider Internal Medicine Cardiovascular Disease
DX: I25.10 Atherosclerotic heart disease of native coronary artery without angina pectoris (principal); Z13.220 Encounter for screening for lipoid disorders
CPT/HCPCS: 36415; 80048; 80061

== ENCOUNTER → 2021-06-07 13:41 | Outpatient (CLI) | payer MEDICARE, OTHER, SELFPAY ==
[2021-06-07 15:25] LABS: COVID19 -Nasal RAPID Negative (Negative)
== END ==
PROVIDERS: PCP Family Medicine; Visit Provider Physical Medicine & Rehabilitation
DX: Z20.822 Contact with and (suspected) exposure to COVID-19 (principal)
CPT/HCPCS: 87635; C9803

== ENCOUNTER 2021-06-09 12:51 | Outpatient (CLI) | payer MEDICARE, OTHER, SELFPAY ==
[2021-06-09] VITALS (8 sets, daily range): BP systolic 108–159; BP diastolic 63–83; PULSE 59–64; RESP 10–16; TEMP 36.6; O2SAT 97–100
--- NOTE | 2021-06-09 12:54 | DI.RAD.S_ITS ---
PROCEDURE: PAIN L INTERLAMINAR/CAUDAL INJ INDICATIONS: Spondylosis [facility], 05/02/2021, 14:39. FINDINGS: Fluoroscopic spot filming was performed to verify placement of a spinal needle at the L4-L5 level, as labeled on the films. Appropriate location of the needle tip was confirmed by injection of iodinated contrast. IMPRESSION: Intraprocedural examination within normal limits. Dictated by: Mark Arnold M.D. on 06/09/2021 at 13:45 Approved by: Mark Arnold M.D. on 06/09/2021 at 13:45
--- NOTE | 2021-06-09 13:57 | PM.PROC.IR.1 ---
Date/Time/Diagnoses Date of procedure: 06/09/21 Time of procedure: 13:57 Pre-procedure diagnosis: 1. MULTILEVEL SPINAL STENOSIS 2. POST FUSION SYNDROME Post-procedure diagnosis: same Procedure Notes Procedure: 1. FLUOROSCOPICALLY GUIDED CONTRAST CONTROLLED CAUDAL EPIDURAL STEROID INJECTION, Indications: is referred by for treatment of Multilevel Stenosis Physician: Melvin Solo Total Fluoroscopy time (seconds): 15 Total sedation minutes: 13 Complications: none Procedure in detail & Post-procedure care: FINDINGS Multilevel Stenosis S/p Lami/Fusion Syndrome DESCRIPTION OF PROCEDURE Fluoroscopically guided, contrast controlled caudal epidural steroid injection with Conscious Sedation Following review of allergy and review of potential side effects and complications, including but not necessarily limited to infection, allergic reaction, local tissue breakdown, temporary or permanent nerve injury, stroke, paralysis, and possible , the patient indicated that they understood and agreed to proceed. An informed consent document was signed by the patient, witnessed by a nurse, and placed in the patient's chart. Additionally, other treatment options including medications, modalities, and physical therapy were reviewed with the patient. After review of previous anaesthesic history and IV conscious sedation the patient was deemed safe to proceed with today?s procedure with IV conscious sedation as ASA class II designation. Safety time-out was performed to confirm patient ID, procedure to be performed and site of procedure. IV sedation was accomplished with a combination of 2mg of Versed and 50mcg of Fentanyl administered by the RN after DO order, titrated to patient comfort during the course of the procedure while the patient remained responsive to all verbal commands In the prone position, following sterile prep and drape of the lumbar region, the sacral hiatus was identified fluoroscopically. The skin was anesthetized via a 25-gauge, 1.5-inch needle with approximately 2cc of 1% lidocaine solution. At this point, a 25-gauge, 3inch needle was atraumatically introduced and advanced under fluoroscopic guidance to the corresponding sacral hiatus and entering the sacral canal. Following negative aspiration, injection of approximately 0.3cc of Isovue 300 confirmed interarticular placement without vascular uptake. Radiological data, including multiple fluoroscopic views of the lumbosacral spine, reveal a spinal needle in the sacral canal through the sacral hiatus. Subsequent views show flow of contrast material superiorly and inferiorly in the sacral canal without vascular or intrathecal uptake. At this point, a total of 6cc including 3cc or 18mg of betamethasone and 3cc of 1% lidocaine solution was injected without complication. The patient tolerated the procedure well without signs or symptoms of complications prior to transfer to the recovery area continued monitoring without incident. The patient was then transferred to the recovery area where they were observed for an appropriate period of time after the injection. The patient reported a VAS score of 10 prior to the procedure and a post-procedure VAS of 2. POST OP INSTRUCTIONS The patient was provided a Pain Log to continue to record their response to the target-specific procedure prior to their follow-up visit with the referring physician. Additionally, specific post-injection care instructions and a contact number to our office were provided if concerns arise regarding possible complications associated with the procedure are suspected.
[2021-06-09] MEDS: fentaNYL 100 MCG/2 ML INJ (14:14)
[2021-06-09] MEDS: MIDAZOLAM 2 MG/2 ML VIAL IV (14:14)
[2021-06-09] MEDS: DEXAMETHASONE 10 MG/ML VIAL 20 MG INJ (14:15)
[2021-06-09] MEDS: BUPIVACAINE 0.25% (PF) VIAL 2 ML INJ (14:15)
[2021-06-09] MEDS: BETAMETHASONE 30 MG/5 ML MDV 6 MG INJ (14:15)
[2021-06-09] MEDS: IOPAMIDOL 15 ML VIAL 3 ML INJ (14:16)
--- NOTE | 2021-06-09 14:24 | P.PCN_ITS ---
Date/Time/Diagnoses Date of procedure: 06/09/21 Time of procedure: 14:24 Pre-procedure diagnosis: 1. HNP WITH RADICULAR FEATURES, 2. MULTILEVEL CENTRAL STENOSIS, Post-procedure diagnosis: same Procedure Notes Procedure: 1. FLUOROSCOPICALLY GUIDED CONTRAST CONTROLLED INTERLAMINAR EPIDURAL STEROID INJECTION -L4/5 Indications: Samm Interiano is referred by Dr. Ocasio for treatment of Bilateral Foraminal Stenosis R>L LE symptoms. Physician: Melvin Solo Total Fluoroscopy time (seconds): 5 Total sedation minutes: 9 Complications: none Procedure in detail & Post-procedure care: FINDINGS Multilevel Central Spinal Stenosis with Nerve Root Compression DESCRIPTION OF PROCEDURE Fluoroscopically guided, contrast-controlled L4/5 translaminar epidural steroid injection. Following review of allergy and review of potential side effects and complications, including, but not necessarily limited to, infection, allergic reaction, local tissue breakdown, temporary as well as permanent nerve injury, paralysis, stroke and possible , the patient indicated that the patient understood and agreed to proceed. An informed consent document was signed by the patient, witnessed by a nurse, and placed in the patient's chart. Additionally, other treatment options including modalities, medications, and physical therapy were reviewed with the patient. After review of previous anaesthesic history and IV conscious sedation the patient was deemed safe to proceed with today?s procedure with IV conscious sedation as ASA class II designation. Safety time-out was performed to confirm patient ID, procedure to be performed and site of procedure. IV sedation was accomplished with a combination of 2mg of Versed and 50mcg of Fentanyl was administered by the RN after DO order, titrated to patient comfort during the course of the procedure while the patient remained responsive to all verbal commands In the prone position, following sterile prep and drape of the lumbar region, the L4/5 translaminar space was identified fluoroscopically. The skin was anesthetized via a 25-gauge, 1.5inch needle with 1% lidocaine solution. At this point, a 22-gauge short bevel spinal needle was atraumatically introduced and advanced under fluoroscopic guidance into the region of the L4/5 translaminar space. Depth was confirmed on lateral view. Radiological data, including multiple fluoroscopic views of the lumbar spine, reveal a spinal needle at the L4/5 translaminar space. Lateral views then show placement of the needle in the epidural space. Subsequent views show contrast material flowing superiorly and inferiorly in the epidural space. No vascular or intrathecal uptake is observed. At this point, using loss of resistance technique with saline and air, the epidural space was entered. This was confirmed following negative aspiration with injection of approximately 1.5cc of Isovue 200, showing excellent epidural flow without vascular or intrathecal uptake. At this point, 1cc of 1% lidocaine solution combined with 3cc or 20mg of dexamethasone and 6mg betamethasone was injected without incident. The patient tolerated the procedure well without signs or symptoms of co mplications prior to transfer to the recovery area continued monitoring without incident. The patient was then transferred to the recovery area where they were observed for an appropriate period of time after the injection. The patient reported a VAS score of 6 prior to the procedure and a post- procedure VAS of 0. POST OP INSTRUCTIONS The patient was provided a Pain Log to continue to record their response to the target-specific procedure prior to follow-up visit with their referring physician. Additionally, specific post-injection care instructions and a contact number to our office were provided if concerns arise regarding possible complications associated with the procedure are suspected.
== END 2021-06-09 14:43 | disposition home or self-care (01) ==
LOC: RAD 12:53
PROVIDERS: PCP Family Medicine; Referring Provider Physical Medicine & Rehabilitation; Visit Provider Physical Medicine & Rehabilitation
DX: M51.16 Intervertebral disc disorders with radiculopathy, lumbar region (principal); M48.061 Spinal stenosis, lumbar region without neurogenic claudication
CPT/HCPCS: 62323; J0702; J1100; J2250; J3010

== ENCOUNTER → 2022-08-31 09:10 | Outpatient (CLI) | payer MEDICARE, OTHER, SELFPAY ==
--- NOTE | 2022-08-31 09:12 | DI.NM.S_ITS ---
PROCEDURE: [place] BONE SCAN WHOLE BODY RADIOPHARMACEUTICAL: 19.6 mCi Tc-99m MDP IV. INDICATIONS: metastatic prosate cancer TECHNIQUE: Delayed whole-body scintigrams were obtained approximately 3-4 hours after intravenous injection of radiotracer. Anterior and posterior views were acquired from vertex to feet. COMPARISON: [facility], MR, MR THORACIC SPINE WO/W CON, 09/05/2019, 10:11. [facility], CT, CT CHEST ABD PEL W CON, 08/31/2022, 10:08. [facility], CT, CT CHEST ABD PEL W CON, 08/11/2019, 11:14. [facility], [place], [place] BONE SCAN WHOLE BODY, 08/11/2019, 13:57. FINDINGS: There is intense abnormal uptake in T7 vertebral body, consistent with metastasis. Compared to the last exam, the lesion demonstrates interval increase in size and intensity, suspicious for worsening of disease. Mildly increased activity in the post right 10th rib appears unchanged. No lesions are identified in skull, sternum, clavicles, scapulae, bony pelvis, and visualized shafts of the long bones. There are foci of increased uptake in cervical, thoracic and lumbar spine most likely secondary to degenerative disc and facet disease; early metastasis to spine could be obscured by degenerative changes. There are foci of increased periarticular activity involving shoulders, sternoclavicular joints, elbows, wrists, ankles and feet, compatible with degenerative/arthritic changes. IMPRESSION: 1. Suspect worsening of osseous metastasis. Dictated by: Trista Nolan M.D. on 08/31/2022 at 13:28 Approved by: Trista Nolan M.D. on 08/31/2022 at 14:20
--- NOTE | 2022-08-31 09:12 | DI.CT.S_ITS ---
PROCEDURE: CT CHEST ABD PEL W CON INDICATIONS: metastatic prostate cancer TECHNIQUE: After the administration of oral and intravenous contrast, axial sections acquired from the supraclavicular neck to the pubic symphysis. Coronal and sagittal reformats were performed. For radiation dose reduction, the following was used: automated exposure control, adjustment of mA and/or kV according to patient size. COMPARISON: [facility], CT, CT CHEST ABD PEL W CON, 08/11/2019, 11:14. FINDINGS: Image quality: Excellent. CHEST: Lower Neck: No enlarged lymph nodes. Thyroid: Subcentimeter left thyroid nodule. Axillae: No enlarged lymph nodes. Chest Wall: Small lipoma at the left subscapular muscle. Lungs and Airways: No consolidation or suspicious nodules. A few calcified granulomas. Airways are clear. Pleura: No pneumothorax or pleural effusions. Heart: Heart size is normal. Three-vessel coronary artery calcifications. No pericardial effusion. Thoracic Vessels: The aorta and pulmonary arteries demonstrate normal size. Moderate calcified plaque. Mediastinum and Quin: Shotty mediastinal lymph nodes. Calcified subcarinal and left hilar lymph nodes. Esophagus: No wall thickening. No hiatal hernia. ABDOMEN: Liver: No focal lesion. Calcified granuloma. Gallbladder: Not distended. Several calcified gallstones. Biliary ducts: Unremarkable. Pancreas: Unremarkable. Spleen: Calcified granuloma. Adrenal Glands: No nodule. Kidneys and Ureters: No hydronephrosis. Stomach and Bowel: Thickening at the rectum, unchanged. Rectosigmoid anastomosis. A few colonic diverticuli. Normal appendix. No small bowel obstruction. Stomach is within normal limits. Peritoneum: No abnormal intraperitoneal fluid. No free air. Ventral Wall: No hernia. Abdominal Nodes: No retroperitoneal or mesenteric adenopathy by size criteria. Small right retrocrural node is unchanged. Vessels: Aorta and inferior vena cava are normal in size. PELVIS: Pelvic Organs: Prostatomegaly. Prostate fiducial markers. Penile calcifications. Bladder: Unremarkable. Pelvic Nodes: No enlarged lymph nodes. Miscellaneous: Possible fat containing inguinal hernias. Lipoma anterior to the left hip. Bones: No suspicious lesion seen. Please see separately dictated same day whole-body bone scan. IMPRESSION: 1. Lungs are clear. 2. No enlarging lymph nodes. 3. No suspicious osseous lesion is identified. Please see separately dictated same day whole-body bone scan. 4. Similar rectal wall thickening. 5. Prostatomegaly. Fiducial markers. Dictated by: Joey Alfonso M.D. on 08/31/2022 at 10:33 Approved by: Joey Alfonso M.D. on 08/31/2022 at 10:50
== END ==
PROVIDERS: PCP Family Medicine; Referring Provider Internal Medicine Hematology & Oncology; Visit Provider Internal Medicine Hematology & Oncology
DX: C61 Malignant neoplasm of prostate (principal); C79.51 Secondary malignant neoplasm of bone; I25.10 Atherosclerotic heart disease of native coronary artery without angina pectoris; K80.20 Calculus of gallbladder without cholecystitis without obstruction; Z98.0 Intestinal bypass and anastomosis status
CPT/HCPCS: 71260; 74177; 78306; A9503; Q9967

== ENCOUNTER 2023-11-01 06:48 | Day surgery (SDC) | payer MEDICARE, OTHER, SELFPAY ==
--- NOTE | 2023-11-01 | PATH_ITS ---
[facility] Accession Number: [id number] No. of containers..03 Tissue . 01 Material submitted: . PART A: cecum - CECAL POLYP PART B: colon - TRANSVERSE POLYPS PART C: colon - DESCENDING POLYPS . 01 Diagnosis: CECUM, POLYPECTOMY: Tubular adenoma. - COLON, TRANSVERSE, POLYPECTOMIES: Tubular adenoma, 1 fragment. Colonic mucosa with benign lymphoid aggregates. - COLON, DESCENDING, POLYPECTOMIES: Tubular adenoma, 1 fragment. Colonic mucosa with benign lymphoid aggregate. [facility] 11/05/2023 1559 Local . 01 Electronically signed: . Brando Baeza MD, Pathologist NPI- [id number] . 01 Gross description: . A. Received in formalin with two patient identifiers and cecal polyp, are two sarabia soft tissue fragments 0.6 to 1.6 cm in greatest dimension. Submitted in cassette A1. B. Received in formalin with two patient identifiers and transverse polyp, are three sarabia soft tissue fragments 0.7 to 1.0 cm in greatest dimension. Submitted in cassette B1. C. Received in formalin with two patient identifiers and descending polyps, are two sarabia soft tissue fragments 0.7 to 0.9 cm in greatest dimension. Submitted in cassette C1. ([id number]) /[facility] 11/02/2023 0958 Local . 01 Pathologist provided ICD-10: Z12.11 . 01 CPT . 124733, [id number], [id number] Specimen Comment: A courtesy copy of this report has been sent to [phone] Performed at: [address] [address], [place], [place] [id number] MD Earl Redd MD Phone: [phone]
[2023-11-01] MEDS: LACTATED RINGERS 1,000 ML 42 ML IV (07:08)
[2023-11-01 07:17] VITALS: BP 180/86; PULSE 56; RESP 16; TEMP 35.8; O2SAT 99
--- NOTE | 2023-11-01 07:35 | PM.HP.1 ---
History of Present Illness History of Present Illness Date Patient Seen: 11/01/23 Time Patient Seen: 07:35 Chief complaint: Colonoscopy Narrative: Jaydon is a 77-year-old man who has a history of polyps and sigmoid colon cancer in 2016. His last colonoscopy was [address] Mills in [place] and no polyps were found. [facility] Medical History Cardiac arrhythmia Herniated nucleus pulposus, lumbar Lumbar stenosis with neurogenic claudication Surgical History History of colon surgery Social History household members: spouse Smoking Status: Never smoker alcohol intake: current Meds Home Medications and Allergies Home Medications Medication Instructions Recorded Confirmed Type OMEGA-3 FATTY ACIDS (FISH OIL) 500 mg PO QDAY ##0 01/10/16 11/01/23 History glucosamine sulfate 500 mg capsule 1,000 mg PO QDAY ##0 01/10/16 11/01/23 History (Genicin) multivitamin (Multiple Vitamins 2 tab PO QDAY ##0 01/10/16 11/01/23 History tablet) lisinopril 40 mg tablet 40 mg PO QDAY #30 tabs 09/05/16 11/01/23 Rx aspirin 81 mg tablet,delayed 81 mg PO DAILY 06/01/21 11/01/23 History release hydrochlorothiazide 25 mg tablet 25 mg PO DAILY 06/01/21 11/01/23 History zolpidem 10 mg tablet 10 mg PO .PRN 09/05/21 11/01/23 History pravastatin 20 mg tablet 20 mg PO DAILY 08/17/22 11/01/23 History Allergies Allergy/AdvReac Type Severity Reaction Status Date / Time No Known Drug Allergies Allergy Verified 11/01/23 07:04 Exam Vital Signs (past 8 hours): - 11/01/23 07:17 Temperature 96.4 F L Pulse Rate 56 L Respiratory Rate 16 Blood Pressure 180/86 H Pulse Oximetry 99 Oxygen Delivery Method Room Air Oxygen Delivery Method Room Air Const General: No acute distress Resp Effort & Inspection: normal respiratory effort Assessment & Plan Assessment and plan (1) History of colon polyps: Status: Acute Plan We reviewed the risks and benefits of colonoscopy and he would like to proceed. Time-Based Coding :: [TOTAL MINUTES] spent with patient and on the chart (including review of chart, obtaining history, exam, reviewing outside data, placing orders, documenting exam and treatment plan, and counseling patient) on [DATE].
--- NOTE | 2023-11-01 08:08 | PM.OP.COLON ---
Operative Date/Time/Diagnoses Date of procedure: 11/01/23 Time of procedure: 08:08 Pre-op diagnosis: History of colon polyps and history of colon cancer Post-op diagnosis: same Procedure & Clinicians Study performed: Colonoscopy Same procedure as scheduled: Yes Surgeon: Marlon Harris Procedure Notes Procedure in detail: Surgeon: Marlon Harris MD Anesthesia: Deisi Hooper MD Procedure: The patient was brought to the endoscopy suite, placed in left lateral decubitus position. The patient was connected to monitoring devices. A time-out was performed. Sedation was administered. Once the patient was adequately sedated, a digital rectal exam was performed and was normal. The scope was then inserted and advanced to the cecum where the appendiceal orifice was identified and photographed. The scope was then slowly withdrawn over greater than 6 minutes. The mucosa was thoroughly inspected. There was a 5 mm polyp in the cecum removed with a cold snare. There were 2 5 mm polyps in the transverse colon removed with a cold snare and sent together. There were 2 5 mm polyps in the descending colon removed with cold snare and sent together. The anastomosis in the upper rectum was normal in appearance with no evidence of recurrence. There were rare scattered diverticula throughout the colon. The scope was retroflexed in the rectum. No other abnormalities were seen. The scope was straightened and removed. The patient was awakened and brought to recovery. Scope withdrawal time: 13 minutes Sedation time: 19 minutes EBL: 5 mL Findings: 5 small polyps as detailed above Post-procedure Disposition: PACU
[2023-11-01 08:14] VITALS: BP 102/68; PULSE 60; RESP 14; TEMP 36.5; O2SAT 97
[2023-11-01 08:19] VITALS: BP 105/70; PULSE 61; RESP 11; O2SAT 99
[2023-11-01 08:25] VITALS: BP 121/76; PULSE 57; RESP 15; O2SAT 97
[2023-11-01 08:26] VITALS: BP 122/73; PULSE 55; RESP 11; TEMP 36.5; O2SAT 98
== END 2023-11-01 08:43 | disposition home or self-care (01) ==
PROVIDERS: PCP Family Medicine; Referring Provider Surgery; Visit Provider Surgery
PROC: 0DJD8ZZ Inspection of Lower Intestinal Tract, Via Natural or Artificial Opening Endoscopic (ICD-10-PCS; CPT 45378; principal; 2023-11-01 07:45)
DX: Z12.11 Encounter for screening for malignant neoplasm of colon (principal); Z85.038 Personal history of other malignant neoplasm of large intestine; Z86.010 Personal history of colon polyps; D12.0 Benign neoplasm of cecum; D12.3 Benign neoplasm of transverse colon; D12.4 Benign neoplasm of descending colon
CPT/HCPCS: 45385; J2704